=== PATIENT | female | born 1990 | race Caucasian/White ===

== ENCOUNTER 2017-01-02 14:22 | Emergency (ER) | payer OTHER | END 2017-01-02 16:15 | disposition home or self-care (01) | LOC: FER 14:22 | DX: J02.9 Acute pharyngitis, unspecified (principal); J40 Bronchitis, not specified as acute or chronic | CPT/HCPCS: 71020; 87450 ==

== ENCOUNTER 2022-01-16 17:43 | Emergency (ER) | payer OTHER ==
[~2022-01-16 17:43] MED LIST: ADDERALL 20 MG20 MG PO; ALL DAY ALLERGY10 M3 PO; BACLOFEN 10MG T10 MG PO; BACLOFEN 20MG T20 MG PO; CEFDINIR300 MG PO; DIAZEPAM 5MG TAB5 MG PO; HUMALOG JU100 UNIT/1 SC; LAMICTAL100 MG PO; PRISTIQ ER100 MG PO; RIZATRIPTAN10 MG PO; SPIRIVA RESPIMAT4 G1 INH; SYMBICORT 16010.2 GM INH; TAMIFLU 75MG CA75 MG PO; TESSALON PERLE100 MG PO; TRAMADOL HCL50 MG PO; VENTOLIN HFA IN18 GM INH
[2022-01-16 18:49] LABS: BILIRUBIN NEGATIVE (NEGATIVE); BLOOD TRACE-INTACT Ery/uL (NEGATIVE); CLARITY CLEAR (CLEAR); COLOR YELLOW (YELLOW); GLUCOSE (U) TRACE mg/dL (NORMAL); LEUKOCYTES NEGATIVE Leu/uL (NEGATIVE); NITRITE NEGATIVE (NEGATIVE); PROTEIN NEGATIVE (NEGATIVE); SPECIFIC GRAVITY 1.015 (1.001-1.030)
[2022-01-16 19:01] LABS: URINARY RBC RARE
[2022-01-16 19:22] LABS: BASOPHIL 0.2 % (0-2); EOSINOPHIL 4.7 % (0-5); HCT 25.9 % (37.0-47.0); HGB 8.8 g/dl (12.5-16.0); LYMPHOCYTE 25.3 % (15-48); MCV 88.4 fL (78.0-100.0); MONOCYTE 8.4 % (0-12); MPV 10.4 fL (6.0-9.5); NRBC 0; PLT 158 K/uL (150-400); RBC 2.93 M/uL (4.20-5.40); RDW 12.8 % (11.5-14.0); WBC 4.5 K/uL (4.0-10.5)
[2022-01-16 19:35] LABS: ALBUMIN 2.9 g/dL (3.4-5.0); BUN/CREAT RATIO (CALC) 8.3 RATIO; CREATININE 0.48 mg/dL (0.51-0.95); POTASSIUM 2.8 mmol/L (3.5-5.1); TOTAL PROTEIN 5.9 g/dL (6.4-8.2)
[2022-01-16 19:44] LABS: LACTIC ACID 0.7 mmol/L (0.4-1.9)
[2022-01-16 19:55] LABS: CORONAVIRUS 2019 SARS-COV-2 NEGATIVE (NEGATIVE); INFLUENZA A NAA NEGATIVE (NEGATIVE)
[2022-01-16] MEDS ORDERED: K-TAB ER20 MEQ PO (21:20)
== END 2022-01-16 21:30 | disposition home or self-care (01) ==
LOC: FER 17:43
PROVIDERS: Nurse Practitioner Family
DX: E87.6 Hypokalemia (principal); E10.9 Type 1 diabetes mellitus without complications; Z88.5 Allergy status to narcotic agent; Z20.822 Contact with and (suspected) exposure to COVID-19; Z88.8 Allergy status to other drugs, medicaments and biological substances; Z28.310 Unvaccinated for COVID-19
CPT/HCPCS: 36415; 71045; 80053; 81001; 83605; 84145; 85025; 87040; J2270; J2550; J7030; U0002